=== PATIENT | female | born 1960 | race Caucasian/White ===

== ENCOUNTER 2022-08-25 06:54 | Day surgery (SDC) | payer OTHER ==
[2022-08-25] MEDS ORDERED: Lactated Ringers 1,000 ML IV SCH (07:00)
[2022-08-25] MEDS ORDERED: Sodium Chloride 0.9% 10 ML Syringe FLUSH PRN (07:00)
[2022-08-25] MEDS ORDERED: Ketamine 500 mg/10 ML MDV ONE (07:17)
[2022-08-25] MEDS ORDERED: fentaNYL 100 MCG/2 ML SDV ONE (07:17)
[2022-08-25] MEDS ORDERED: Midazolam 1 MG/ML 2 ML SDV ONE (07:18)
[2022-08-25] MEDS ORDERED: Propofol 200 MG/20 ML SDV ONE (07:18)
[2022-08-25] MEDS ORDERED: ceFAZolin 1 GM Vial ONE (08:08)
[2022-08-25] MEDS ORDERED: Bupivacaine 0.5%/EPINEPHrine 1:200,000 30 ML SDV INFILT ONE (08:19)
== END 2022-08-25 11:14 | disposition home or self-care (01) ==
LOC: LL.SDS 06:54
PROVIDERS: ATTEND Surgery
DX: M67.442 Ganglion, left hand (principal); I25.10 Atherosclerotic heart disease of native coronary artery without angina pectoris; E78.5 Hyperlipidemia, unspecified; I10 Essential (primary) hypertension; M85.80 Other specified disorders of bone density and structure, unspecified site; K27.9 Peptic ulcer, site unspecified, unspecified as acute or chronic, without hemorrhage or perforation; I25.2 Old myocardial infarction; K21.9 Gastro-esophageal reflux disease without esophagitis; F41.8 Other specified anxiety disorders; M54.50 Low back pain, unspecified; G89.29 Other chronic pain; Z87.891 Personal history of nicotine dependence; Z86.73 Personal history of transient ischemic attack (TIA), and cerebral infarction without residual deficits; Z98.890 Other specified postprocedural states; Z79.82 Long term (current) use of aspirin; Z79.899 Other long term (current) drug therapy; Z88.5 Allergy status to narcotic agent; Z88.8 Allergy status to other drugs, medicaments and biological substances
CPT/HCPCS: 01830; J0690; J2250; J2704; J3010; J3490; J7120